=== PATIENT | male | born 1965 | race Caucasian/White ===

== ENCOUNTER 2018-10-22 21:32 | Emergency (ER) | payer BC, OTHER ==
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
== END 2018-10-22 22:56 | disposition home or self-care (01) ==
LOC: JD.ED 21:32
DX: F10.120 Alcohol abuse with intoxication, uncomplicated (principal); Y90.6 Blood alcohol level of 120-199 mg/100 ml; Z87.891 Personal history of nicotine dependence
CPT/HCPCS: 36415; 80306; 99284; G0480; 99282